=== PATIENT | female | born 1950 | race Caucasian/White ===

== ENCOUNTER 2017-09-06 19:13 | Emergency (ER) | payer MEDICARE, OTHER ==
--- NOTE | 2017-09-06 19:31 | ERNOTE ---
Lower Extremity HPI - Narrative Date of Service: 09/06/17 - General Lower Extremities Pain: ankle: left Time Seen by Provider: 09/06/17 19:20 Source: patient Exam Limitations: no limitations - Immun/Allergies/Home Medications Immunizations: IMMUNIZATION HX Immunizations Up to Date No History of Influenza Vaccine No Allergies/Adverse Reactions: Allergies Allergy/AdvReac Type Severity Reaction Status Date / Time No Known Allergies Allergy Unverified 09/06/17 19:23 Home Medications: HOME MEDICATIONS Levothyroxine Sodium [Synthroid] 150 mcg PO DAILY 09/06/17 [Last Taken Unknown] Pravastatin Sodium [Pravachol] 20 mg PO HS 09/06/17 [Last Taken Unknown] oxyCODONE HCL/ACETAMINOPHEN [Percocet 5 MG/325 MG] 1 tab PO Q4H PRN #20 tab 10/23 [Last Taken Unknown] - History of Present Illness Narrative: Pt. comes in with c/o L foot pain and injury after a dog ran into her L leg and it buckled and she fell to the ground. Pt. deies any other pain or hitting her head. Pt. received Morphine for bruce pain prior to arrival by EMS and states taht her pain is resolved at this time from that. Occurred: just prior to arrival Location of Incident: other - sidewalk in neighborhood Method of Injury: Reports: fell Reason for Fall: Reports: other - ran into by dog Loss of Consciousness: Reports: no loss of consciousness Modifying Factors - (Improves): Reports: pain medication Modifying Factors - (Worsens): Reports: movement Associated Symptoms: Reports: unable to bear weight. Denies: snapping, popping sensation, dizzy/light headedness, headache, weakness, sensory loss, chest pain , vomiting/diarrhea, bowel/bladder problems Other Injuries: Reports: none Subsequent Symptoms: Denies: sensory loss, numbness, motor loss Review of Systems - Review of Systems Constitutional: Present: no symptoms reported. Absent: recent illness, fever, chills, weakness, fatigue, malaise EYE: Present: no symptoms reported ENT: Present: no symptoms reported Respiratory: Present: no symptoms reported. Absent: shortness of breath, cough , wheezing Cardiology: Present: no symptoms reported. Absent: chest pain, palpitations, edema Gastrointestinal/Abdominal: Present: no symptoms reported. Absent: nausea, vomiting, diarrhea Genitourinary: Present: no symptoms reported Musculoskeletal: Present: joint pain - L ankle. Absent: back pain Neurological: Present: no symptoms reported. Absent: headache, dizziness/light- headedness, numbness, tingling All Other Systems: All systems neg except as marked - Patient's Past Medical History Patient History - Medical: Hypothyroidism Patient History - Cardiac/Respiratory: Hyperlipidemia Patient History - Cancer: No Hx of Cancer Patient History - Surgical Procedures: No surgical history - Social History Living Situations: home Smoking Status: Former smoker Alcohol Use: none Drug Use: none - Immunizations Immunizations Up to Date: No History of Influenza Vaccine: No Physical Exam - Physical Exam General Appearance: Present: wd/wn, alert, no apparent distress Head Exam: Present: normal inspection, no evidence of injury Eye Exam: Normal inspection: bilateral, PERRL: bilateral, EOMI: bilateral Ears, Nose, Throat: Present: normal ENT inspection, normal pharynx Neck: Present: normal inspection, nontender, supple, full range of motion. Absent: lymphadenopathy (R), lymphadenopathy (L) Respiratory: Present: no respiratory distress, normal breath sounds, no accessory muscle use, chest nontender, lungs clear Cardiovascular/Chest: Present: regular rate, rhythm, no murmur, normal peripheral pulses Peripheral Pulses: N=norm/S=strong/W=weak/B=bound/A=absent: Dorsalis-pedis (R): Normal, Dorsalis-pedis (L): Weak Back Exam: Present: normal inspection, normal range of motion, no CVA tenderness , no vertebral tenderness Extremity Exam: Present: bony tenderness - L distal tib fib, other - L ankle and foot deformity Neurological Exam: Present: alert, oriented, normal mood/affect, no motor/ sensory deficits, 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 Absent: pallor, skin rash ED Progress - Date and Time Seen: Date and Time: 09/06/17 20:[address] ventura and he recommends reducing ankle and he will look at xays when finished 09/06/17 21:[address] Ventura again and he states that he feels that ankle is in good alignment and that pt. is safe to go home but needs to keep foot elevated and iced and call the office first thing Saturday morning for appointment on Saturday. - Results and Orders Patient's Lab Results:: I have reviewed the patient's lab results. - Vital Signs Patient's Vital Signs:: I have reviewed the patient's vital signs. Vital Signs: Vital Signs 09/06/17 19:17 Temperature 36.2 C L Pulse Rate 84 Respiratory 18 Rate Blood Pressure 152/80 O2 Sat by Pulse 96 Oximetry - EKG EKG: NSR, nonspecific ST T wave changes EKG read: Reviewed by me EKG Comments: Interp by Dr Pittman - X-Ray X-Ray #1 X-Ray: ankle Interpretation: Reviewed by me X-ray Comments: severely displaced trimalleolar fracture X-Ray #2 X-Ray: ankle Interpretation: Reviewed by me X-ray Comments: Ankle reduced in good alignment after reduction. - Progress/Reassessment Progress:: Unchanged Procedures Date and Time: Performed By Dr Pittman Joint Reduction Site: other - L ankle Conscious Sedation: Yes - Basil FINANCE CLERK here for this Reduction Attempts: 1 Pre-Procedure NV Exam: Yes - Intact Post-Procedure NV Exam: Yes - Intact Post Joint Reduction Film: other - fractured anle well aligned and joint reduced Complications: Pt elma procedure well Departure Clinical Impression: Ankle fracture Qualifiers: Encounter type: initial encounter Fracture type: closed Laterality: left Qualified Code(s): S82.892A - Other fracture of left lower leg, initial encounter for closed fracture - Departure Disposition: Home self-care Condition: Good Instructions: Cast or Splint Care, Delu-af-Fquf, Complex Ankle Fracture Additional Instructions: Please call Dr Ventura's office on Saturday to get appointment for Saturday. Please keep foot elevated and keep ice on ankle. May use crutches to get up with if needed. No putting any weight on this foot. Referrals: Macarena Quinones MD [Primary Care Provider] - Prescriptions: oxyCODONE HCL/ACETAMINOPHEN [Percocet 5 MG/325 MG] 1 tab PO Q4H PRN #20 tab PRN Reason: Pain
[2017-09-06] MEDS ORDERED: HYDROmorphone HCL 1 MG/ML DISP.SYRIN IV ONE (19:57)
[2017-09-06] MEDS ORDERED: ONDANSETRON HCL/PF 2 MG/ML VIAL IV ONE (19:57)
[2017-09-06] MEDS ORDERED: HYDROmorphone HCL 1 MG/ML DISP.SYRIN ONE (19:57)
[2017-09-06] MEDS ORDERED: ONDANSETRON HCL/PF 2 MG/ML VIAL ONE (19:58)
[2017-09-06 20:20] LABS: Hematocrit 38.5 % (37.0-47.0); Hemoglobin 13.3 gm/dL (12.5-16.0); Mean Corpuscular Hemoglobin 31.1 pg (27-31); Mean Corpuscular Hgb Conc 34.5 g/dl (32-36); Neutrophil # 8.3 K/mm3 (1.3-6.0); Neutrophil % 72.5 % (42-75.0); Platelet Count 243 K/mm3 (150-450); Red Blood Count 4.28 M/mm3 (4.2-5.4); Red Cell Distribution Width 12.2 % (11.5-14.0); White Blood Count 11.4 K/mm3 (4.0-10.5)
[2017-09-06 20:28] LABS: Prothrombin Time (Patient) 9.4 Seconds (9.0-11.0)
[2017-09-06 20:30] LABS: INR 0.94 INR (0.90-1.10)
[2017-09-06 20:32] LABS: Albumin * 3.8 gm/dl (3.4-5.0); Anion Gap 10.3 mmol/L (6.8-13.8); BUN/Creatinine Ratio 19.2 (9.0-21.6); Bilirubin, Total 0.3 mg/dL (0.0-1.1); Ca. Corrected For Albumin 8.9 mg/dL (8.4-10.2); Calcium * 9.1 mg/dL (7.9-10.9); Carbon Dioxide 28.5 mmol/L (24-32.6); Potassium 3.8 mmol/L (3.4-4.6); Total Protein 7.6 gm/dL (6.2-8.2)
[2017-09-06] MEDS ORDERED: oxyCODONE HCL/ACETAMINOPHEN 1 TAB TABLET PO ONE (21:44)
[2017-09-06] MEDS ORDERED: oxyCODONE HCL/ACETAMINOPHEN 1 TAB TABLET ONE (21:50)
[2017-09-06 22:27] VITALS: BP 138/65
== END 2017-09-06 22:18 | disposition home or self-care (01) ==
LOC: ER 19:13
PROC: 0QSKXZZ Reposition Left Fibula, External Approach (ICD-10-PCS; principal; 2017-09-06)
DX: S82.892A Other fracture of left lower leg, initial encounter for closed fracture (principal); W01.0XXA Fall on same level from slipping, tripping and stumbling without subsequent striking against object, initial encounter; Y93.9 Activity, unspecified; Y92.9 Unspecified place or not applicable; Y99.9 Unspecified external cause status
CPT/HCPCS: 27818; 36415; 71010; 73610; 80053; 85025; 85610; 93005; 96374; 96375; 99285; J2405

== ENCOUNTER 2017-09-13 11:22 | Inpatient (IN) | payer OTHER ==
[~2017-09-13 11:22] MED LIST: HYDROmorphone HCL 2 MG/ML VIAL IV PRN; RINGER'S SOLUTION,LACTATED 1,000 ML IV PRN; ceFAZolin SODIUM 1 GM VIAL IV PRN
[2017-09-13] MEDS ORDERED: RINGER'S SOLUTION,LACTATED 1,000 ML IV ONE ×3 (12:50→18:18)
[2017-09-13] MEDS ORDERED: BUPIVACAINE HCL 50 ML VIAL IJ ONE (16:00)
--- NOTE | 2017-09-13 16:18 | POSTOP NO ---
Date of Surgery: 09/13/17 Patient Tolerated the Procedure: Well Post Operative Diagnosis/Procedures: Financial Adviser: Vini Noland PA-C Post-operative Diagnosis: Left bimalleolar ankle fracture, osteochondral defect talus Finding: Above Procedure: Left ankle open reduction internal fixation of bimalleolar ankle fracture, microfracture talus Estimated Blood Loss: Minimal Specimens: None
--- NOTE | 2017-09-13 16:22 | OR ---
Operative Report - Dictated Report Narrative: Date: 09/13/2017 Surgeon: Alejandro Ventura M.D. Storage Solutions Architect: Vini Noland PA-C Anesthesia: Spinal plus local Preoperative diagnosis: Closed left bimalleolar ankle Fracture. Postoperative diagnosis: Closed left bimalleolar ankle Fracture. Osteochondral defect medial talar dome Procedure: 1. Open reduction internal fixation left medial and lateral malleolus ankle fracture. 2. microfracture medial talar dome 3. Intra-operative interpretation of radiographs. Estimated blood loss: None Tourniquet time: 111 Minutes at 275 millimeters mercury Retained implants: [employer] 6-hole VLP distal fibular left plate with associated screws on the fibula, 4.0 mm cannulated partially threaded cancellus screws in the medial malleolus x 46 mm 2 Specimens: None Complications: None Indications: Mrs. Montiel is a 66-year-old female who tripped over her dog resulting in a injury to the left ankle. They were seen in the emergency department with images obtained revealing the above injury. They were seen in clinic where the skin was examined and felt to be amenable to surgical treatment. The risks, benefits, and treatment options were discussed with the patient and the plan for of reduction internal fixation was discussed. Risks were reviewed including , blood clots, nerve/tendon/blood vessel injury, malunion, nonunion, failure of implants, prominent implants, arthrosis, persistent pain, need for additional procedures. Procedure: After a timeout, anesthetic consisting of Ancef was administered. Beanbag was utilized in order bump the operative leg and a well-padded tourniquet was applied to the operative thigh. The splint was removed and the leg was pre- scrubbed with chlorhexidine then prepped and draped in a standard sterile fashion. The extremity was exsanguinated and tourniquet was inflated. Initial attention was turned to the medial malleolus. A curvilinear incision was made over the anterior medial aspect of the distal tibia. Care was taken to protect the saphenous vein and nerve. The medial malleolus fracture was identified and the soft tissues elevated off the bony edges. Hematoma was evacuated from the fracture site. The joint was visualized and there appeared to be noted chondral damage to the medial talar dome. This is approximately 1 cm. The loose chondral edges were curetted and a microfracture was performed using an awl. The joint was thoroughly irrigated. Preliminary fixation with a reduction clamp was placed across the fracture of the medial malleolus. Attention was then turned to the lateral malleolus. A posterior lateral incision was made over the fibular fracture. Subcutaneous dissection was carried down to the fibula protecting the superficial peroneal nerve. The fracture was identified and was noted to be oblique posterior proximal to anterior distal. After preparing the bony edges and reducing the fracture, a 2.7 mm fully threaded cortical screw was utilized in order to stabilize the fracture. The VLP distal fibular plate was then selected and fixed. Mini C- arm was used in order to confirm the appropriate placement and length of the implants. Care was taken to avoid placing screws into the ankle joint and the syndesmosis. Once it was felt that the fibula was adequately stabilized we returned our attention to the medial malleolus. Two parallel guidewires were placed from the tip of the medial malleolus paralleling the anterior distal tibia within the confines of the distal tibial bone. These were measured, drilled, and sequentially tightened using 2 4.0 mm partially-threaded cancellus screws. This gave good stabilizations the medial malleolus fracture. The ankle was then placed through a range of motion and had no significant crepitance. The syndesmosis was stressed and was noted to be stable. The mortise was symmetrical and intact. The wounds were then thoroughly irrigated. Subcutaneous tissue was repaired over the implants utilizing 3-0 Vicryl and 4-0 Vicryl. The skin was closed utilizing 3-0 nylon laterally and 4-0 nylon medially. Xeroform, 4 x 4's, soft roll, and a well-padded AO splint was applied. Patient was then awoken and transferred to postanesthesia care in stable condition. All sponge, sharp, and instrument counts were correct prior to closing the wounds.
[2017-09-13] MEDS ORDERED: ALBUTEROL SULFATE 2.5 MG/0.5 ML VIAL.NEB IH ONE ×2 (17:20→17:40)
[2017-09-13] MEDS: oxyCODONE HCL/ACETAMINOPHEN 1 TAB TABLET PO PRN ×2 (17:52→22:11)
--- NOTE | 2017-09-13 20:41 | HP ---
Chief Complaint - Chief Complaint Date of Service: 09/13/17 Time of Service: 20:32 Chief Complaint: shortness of breath/wheezing History of Present Illness: Shae Montiel, is a 66-year-old white female, with previous medical history of hypothyroidism, obesity, who was admitted on 09/13/2017 because of shortness of breath and wheeziness. The patient underwent an open reduction internal fixation of a trimalleolar fracture of the left ankle this morning. In the process of inducing spinal anesthesia, the patient vomited. In the recovery room patient started having congestion, coughing and wheezing . She also had some sore throat. Because of the concern of possible aspiration the patient was admitted for observation. - Patient's Past Medical History Patient History - Medical: Hypothyroidism, Migraines Patient History - Cardiac/Respiratory: Hyperlipidemia Patient History - Cancer: No Hx of Cancer Patient History - Surgical Procedures: No surgical history Patient History - Other: None LMP (females 10-50): Menopausal - Family History Mother Family History - Medical: , Hypothyroidism, Other Family History - Cardiac/Respiratory: No pertinent hx Family History - Cancer: No pertinent family hx Father Family History - Medical: , Other Family History - Cardiac/Respiratory: No pertinent hx Family History - Cancer: No pertinent family hx - Social History Living Situations: home Abuse History: No History of abuse Psych History: No pertinent hx Smoking Status: Former smoker Have you smoked in the past 12 months: No Do you dip or chew tobacco: No Smoking Start Date: 10/07/75 Smoking Stop Date: 10/07/06 Patient requests Smoking Cessation Consult: No Initiate information on Smoking Cessation: No Alcohol Use: rarely Drug Use: none - Immunizations Immunizations Up to Date: No History of Influenza Vaccine: No Review Of Systems (GEN) - Review of Systems Generalized/Overall Review: Present: Weakness. Absent: Chills, Fever Respiratory: Present: Cough, Shortness of Breath, Wheezing Cardiac: Absent: Chest Pain, Edema, Palpitations Abdominal: Absent: Nausea, Vomiting Genitourinary: Absent: Urgency, Frequency Musculoskeletal: Present: Joint Pain Immunizations: IMMUNIZATION HX Immunizations Up to Date No History of Influenza Vaccine No Allergies/Adverse Reactions: Allergies Allergy/AdvReac Type Severity Reaction Status Date / Time No Known Allergies Allergy Verified 09/13/17 19:35 Home Medications: HOME MEDICATIONS Levothyroxine Sodium [Synthroid] 150 mcg PO DAILY 09/06/17 [Last Taken Unknown] Pravastatin Sodium [Pravachol] 20 mg PO HS 09/06/17 [Last Taken Unknown] oxyCODONE HCL/ACETAMINOPHEN [Percocet 5 MG/325 MG] 1 - 2 tab PO Q4H PRN [Last Taken Unknown] Exam - Exam Vital Signs: Vital Signs - Last Taken Temp 36.5 C 09/13/17 19:15 Pulse 105 H 09/13/17 19:15 Resp 20 09/13/17 19:15 BP 145/50 09/13/17 19:15 Pulse Ox 93 09/13/17 19:15 Constitutional: Present: Alert, Oriented x3, Mild distress ENT Exam: Present: hearing grossly normal Eye Exam: bilateral eye: normal inspection, PERRL, EOMI Neck: Present: supple Respiratory: Present: decreased breath sounds, wheezing, No rales Cardiovascular/Chest: Present: regular rate, rhythm, no JVD, no murmur Abdomen: Present: Normal bowel sounds, soft, nontender, nondistended Extremity: Present: no calf tenderness, other - left ankle in a posterior splint Assessment/Plan - Assessment/Plan (1) Shortness of breath Assessment: with wheezing. r/o aspiration pneumonitis/pneumonia r/o acute bronchitis. will do CXR, breathing treatment. ADDENDUM: suspicious infiltrate right perihilar region- will start IV antibiotics. Problem: Acute (2) Ankle fracture Problem: Acute (3) Hypothyroidism Problem: Acute
[2017-09-13 21:16] LABS: Hematocrit 38.3 % (37.0-47.0); Hemoglobin 12.6 gm/dL (12.5-16.0); Mean Cell Volume 93.6 fl (78-100); Mean Corpuscular Hemoglobin 30.8 pg (27-31); Mean Corpuscular Hgb Conc 32.9 g/dl (32-36); Mean Platelet Volume 8.8 fl (6.0-9.5); Neutrophil # 12.5 K/mm3 (1.3-6.0); Neutrophil % 88.7 % (42-75.0); Platelet Count 216 K/mm3 (150-450); Red Blood Count 4.09 M/mm3 (4.2-5.4); Red Cell Distribution Width 11.9 % (11.5-14.0); White Blood Count 14.1 K/mm3 (4.0-10.5)
[2017-09-13 21:32] LABS: Albumin * 3.1 gm/dl (3.4-5.0); Anion Gap 13.7 mmol/L (6.8-13.8); BUN/Creatinine Ratio 13.6 (9.0-21.6); Bilirubin, Total 0.3 mg/dL (0.0-1.1); Ca. Corrected For Albumin 9.6 mg/dL (8.4-10.2); Calcium * 9.2 mg/dL (7.9-10.9); Carbon Dioxide 26.5 mmol/L (24-32.6); Potassium 4.2 mmol/L (3.4-4.6); Total Protein 7.3 gm/dL (6.2-8.2)
[2017-09-13] MEDS: AMPICILLIN SODIUM/SULBACTAM NA 1.5 GM in NORMAL SALINE 100 ML IV SCH (23:38)
[2017-09-14] MEDS ORDERED: ALBUTEROL SULFATE 2.5 MG/0.5 ML VIAL.NEB IH PRN (00:18)
[2017-09-14] MEDS: oxyCODONE HCL/ACETAMINOPHEN 1 TAB TABLET PO PRN ×6 (02:44→23:42)
[2017-09-14] MEDS: RINGER'S SOLUTION,LACTATED 1,000 ML IV PRN (03:38)
[2017-09-14] MEDS: AMPICILLIN SODIUM/SULBACTAM NA 1.5 GM in NORMAL SALINE 100 ML IV SCH ×4 (03:41→19:44)
--- NOTE | 2017-09-14 10:16 | PN ---
Subjective - Date and Time Seen Date: 09/14/17 Time: 10:13 Subjective Narrative: Patient is feeling better. Has hoarse voice. Objective - Review of Systems Generalized/Overall Review: Denies: Chills, Fever Respiratory: Reports: Cough, Shortness of Breath, Wheezing Cardiac: Denies: Chest Pain, Edema, Palpitations Abdominal: Denies: Nausea, Vomiting Genitourinary Symptoms: Denies: Urgency, Frequency Musculoskeletal Complaints: Reports: Joint Pain - Vitals Vitals: Last Vital Signs Temp 36.6 C 09/14/17 08:19 Pulse 93 09/14/17 08:19 Resp 18 09/14/17 08:19 BP 134/57 09/14/17 08:19 Pulse Ox 98 09/14/17 08:19 - Abnormal Lab Findings Abnormal Lab Findings: Abnormal Lab Results 09/13/17 09/13/17 Range/Units 21:15 21:15 WBC 14.1 H (4.0-10.5) K/mm3 RBC 4.09 L (4.2-5.4) M/mm3 Immature Gran # (Auto) 0.06 H (0.000-0.0310) K/mm3 Neutrophils % 88.7 H (42-75.0) % Lymphocytes % 4.8 L (20-51) % Neutrophils # 12.5 H (1.3-6.0) K/mm3 Lymphocytes # 0.7 L (1.5-3.5) k/mm3 Est GFR (Non-Af Amer) 57 L (60-130) mL/min Random Glucose 126 H (70-110) mg/dL Albumin 3.1 L (3.4-5.0) gm/dl - Exam Constitutional: Present: Alert, Oriented x3, Cooperative ENT Exam: Present: hearing grossly normal Neck: Present: supple Respiratory: Present: decreased breath sounds, No rales Cardiovascular/Chest: Present: regular rate, rhythm, no JVD, no murmur Abdomen: Present: Normal bowel sounds, soft, nontender, nondistended Extremity: Present: no calf tenderness, other - left ankle in a postrior splint. Assessment/Plan - Problems/Diagnosis (1) Pneumonia, aspiration Problem: Acute Qualifiers: Laterality: right Lung location: unspecified part of lung Narrative: right perihilar infiltrates on CXR. leukocytosis- reactive and /or infection. started on IV Unasyn and will change to oral when WBC is back to normal. (2) Shortness of breath Problem: Acute Narrative: due to aspiration pneumonitis/pneumonia (3) Ankle fracture Problem: Acute (4) Hypothyroidism Problem: Acute
[2017-09-15] MEDS: RINGER'S SOLUTION,LACTATED 1,000 ML IV PRN (01:19)
[2017-09-15] MEDS: AMPICILLIN SODIUM/SULBACTAM NA 1.5 GM in NORMAL SALINE 100 ML IV SCH (01:47)
[2017-09-15 05:40] LABS: Hematocrit 32.2 % (37.0-47.0); Hemoglobin 10.8 gm/dL (12.5-16.0); Mean Cell Volume 91.7 fl (78-100); Mean Corpuscular Hemoglobin 30.8 pg (27-31); Mean Corpuscular Hgb Conc 33.5 g/dl (32-36); Mean Platelet Volume 8.5 fl (6.0-9.5); Neutrophil # 6.4 K/mm3 (1.3-6.0); Neutrophil % 63.2 % (42-75.0); Platelet Count 193 K/mm3 (150-450); Red Blood Count 3.51 M/mm3 (4.2-5.4); Red Cell Distribution Width 12.3 % (11.5-14.0)
[2017-09-15 05:49] LABS: Anion Gap 8.6 mmol/L (6.8-13.8); BUN/Creatinine Ratio 9.9 (9.0-21.6); Calcium * 8.5 mg/dL (7.9-10.9); Carbon Dioxide 30.1 mmol/L (24-32.6); Estimated Creat Clear 54.3; Potassium 3.7 mmol/L (3.4-4.6)
[2017-09-15] MEDS: oxyCODONE HCL/ACETAMINOPHEN 1 TAB TABLET PO PRN (07:07)
[2017-09-15 07:12] VITALS: BP 148/69
--- NOTE | 2017-09-15 07:51 | DS ---
<Jessica Ramsey - Last Filed: 09/15/17 09:09> (1) Pneumonia, aspiration Problem: Suspected QualifierTitle: Laterality: right Lung location: unspecified part of lung (2) Shortness of breath Problem: Resolved (3) Ankle fracture Problem: Acute (4) Hypothyroidism Problem: Chronic Disposition: Home self-care Condition: Good Referrals: Macarena Quinones MD [Primary Care Provider] - Problem Oriented Discharge Instructions to Patient/Family: Aspiration Pneumonia Additional Patient Instructions (free text): Follow up with Aron Lakhani 09/26 at 1:00 Follow up with same day as [place] appointment with Aron Lakhani [facility] will call you on Saturday with follow up appointments. No Weight Bearing to left leg. Prescriptions (Any new or edited meds): Albuterol Sulfate [Proair Hfa] 2 puff IH QID PRN #1 inhaler PRN Reason: Shortness Of Breath/Wheezing Albuterol Sulfate [Albuterol Sulfate 2.5 MG/0.5ML] 2.5 mg IH BID PRN #2 vial.neb PRN Reason: Shortness Of Breath/Wheezing Amox Tr/Potassium Clavulanate [Augmentin 875-125 Tablet] 875 mg PO Q12H #20 tab Complete Home Medications List: Complete Home Medication List: Levothyroxine Sodium [Synthroid] 150 mcg PO DAILY 09/06/17 Pravastatin Sodium [Pravachol] 20 mg PO HS 09/06/17 oxyCODONE HCL/ACETAMINOPHEN [Percocet 5 MG/325 MG] 1 - 2 tab PO Q4H PRN Albuterol Sulfate [Albuterol Sulfate 2.5 MG/0.5ML] 2.5 mg IH BID PRN #2 vial.neb 09/15/17 Albuterol Sulfate [Proair Hfa] 2 puff IH QID PRN #1 inhaler 09/15/17 Amox Tr/Potassium Clavulanate [Augmentin 875-125 Tablet] 875 mg PO Q12H #20 tab 09/15/17 <Yobany Cota - Last Filed: 09/15/17 19:28> (1) Hypothyroidism Problem: Chronic (2) Pneumonia, aspiration Problem: Suspected Qualifiers: Laterality: right Lung location: unspecified part of lung (3) Shortness of breath Problem: Resolved (4) Ankle fracture Problem: Acute Description of Stay: Shae Montiel, is a 66-year-old white female, with previous medical history of hypothyroidism, obesity, who was admitted on 09/13/2017 because of shortness of breath and wheeziness. The patient underwent an open reduction internal fixation of a trimalleolar fracture of the left ankle. In the process of inducing spinal anesthesia, the patient vomited. In the recovery room patient started having congestion, coughing and wheezing . She also had some sore throat. Because of the concern of possible aspiration the patient was admitted for observation. Pt remains medically stable for discharge home today.She will continue on Augmentin upon discharge and follow up with pcp 3-7days and ortho as schedule.Plan of care discussed with pt she verbalized understanding and agrees. Procedures Performed: see notes below List Procedures: Procedure: 1. Open reduction internal fixation left medial and lateral malleolus ankle fracture. 2. microfracture medial talar dome 3. Intra-operative interpretation of radiographs. Discharge Disposition: Home self care Discharge Diet: General/regular food Halfway Therapy: Physicial Therapy
--- NOTE | 2017-09-15 09:05 | PN ---
Progess Note - Interim Narrative: 09/15/17 09:02 I saw and examined this patient on 09/15/2017 . I saw and agree with the narrative and plan of ANDI Vogt. She is going to be discharged on Augmentin 875/125 PO BID x 10 days for her aspiration pneumonia. Her WBC count is back to normal. She will follow up with Orthopedics for her trimalleolar fracture s/p ORIF and follow up with her PCP.
== END 2017-09-15 10:30 | disposition home or self-care (01) | DRG 492 ==
LOC: AMB 11:22 → MS 18:59 → OBSVTOIN 09-14 09:30
PROVIDERS: ADMIT Internal Medicine; ATTEND Internal Medicine
PROC: 0QHK04Z Insertion of Internal Fixation Device into Left Fibula, Open Approach (ICD-10-PCS; 2017-09-13)
PROC: 0QSH04Z Reposition Left Tibia with Internal Fixation Device, Open Approach (ICD-10-PCS; principal; 2017-09-13 16:00)
DX: S82.842A Displaced bimalleolar fracture of left lower leg, initial encounter for closed fracture (principal); J69.0 Pneumonitis due to inhalation of food and vomit; J95.89 Other postprocedural complications and disorders of respiratory system, not elsewhere classified; W18.31XA Fall on same level due to stepping on an object, initial encounter; E78.5 Hyperlipidemia, unspecified; Y92.480 Sidewalk as the place of occurrence of the external cause; E03.9 Hypothyroidism, unspecified; Z87.891 Personal history of nicotine dependence
CPT/HCPCS: 27814; 36415; 71020; 80048; 80053; 85025; 87040; 87070; 94640; G0378